=== PATIENT | female | born 1975 | race African-American/Black ===

== ENCOUNTER 2019-05-02 08:48 | Emergency (ER) | payer OTHER ==
[~2019-05-02] VITALS: Ht 157.5 cm; Wt 174.6 kg
[2019-05-02 09:25] LABS: ABSOLUTE NEUTROPHILS 5.7 thou/uL (1.4-8.2); BASOPHILS 1.2 % (0.0-2.0); EOSINOPHILS 2.3 % (0.0-3.0); HEMOGLOBIN 12.7 gm/dL (12.0-15.0); LYMPHOCYTES 21.4 % (24.0-44.0); MCH 27.5 pg (26.0-34.0); MCHC 33.4 g/dL (28.0-37.0); MCV 82.2 fL (80.0-100.0); MONOCYTES 6.7 % (1.0-8.0); PLATELET COUNT 379 thou/uL (150-400); POLYS 68.4 % (36.0-66.0); RBC 4.62 mil/uL (4.20-5.00); RDW 15.7 % (10.5-14.5); WBC 8.4 thou/uL (4.0-11.0)
[2019-05-02 09:29] LABS: ANION GAP 8 mmol/L (7-16); BUN 13 mg/dL (7-18); CALCIUM 8.8 mg/dL (8.5-10.1); CHLORIDE 104 mmol/L (98-107); CO2 28 mmol/L (21-32); CREATININE 0.7 mg/dL (0.6-1.0); GLUCOSE 83 mg/dL (74-106); POTASSIUM 3.9 mmol/L (3.5-5.1); SODIUM 140 mmol/L (136-145)
[2019-05-02] MEDS ORDERED: SIMVASTATIN80 MG PO (09:36)
[2019-05-02] MEDS ORDERED: COUMADIN7.5 MG PO (09:36)
[2019-05-02] MEDS ORDERED: KEPPRA XR500 MG PO (09:36)
[2019-05-02] MEDS ORDERED: NORVASC 2.5 MG2.5 M1 PO (09:37)
[2019-05-02] MEDS ORDERED: FLUOXETINE HCL10 M1 PO (09:38)
[2019-05-02 09:39] LABS: ALBUMIN 2.9 g/dL (3.4-5.0); LIPASE 112 U/L (73-393); SGOT 20 U/L (15-37); SGPT 24 U/L (30-65); TOTAL BILIRUBIN 0.6 mg/dL (<0.1-1.0); TOTAL PROTEIN 6.8 g/dL (6.4-8.2); TROPONIN-I <0.06 ng/mL (<0.06)
[2019-05-02 09:44] LABS: INR 2.1; PROTIME 21.4 Seconds (9.3-11.4)
[2019-05-02 11:54] LABS: URINE BILIRUBIN NEGATIVE (Negative); URINE BLOOD TRACE (Negative); URINE CLARITY CLEAR; URINE COLOR YELLOW; URINE GLUCOSE-RANDOM* NEGATIVE (Negative); URINE KETONES NEGATIVE (Negative); URINE LEUKOCYTES-REFLEX NEGATIVE (Negative); URINE NITRITE-REFLEX NEGATIVE (Negative); URINE PROTEIN (DIPSTICK) NEGATIVE (Negative); URINE UROBILINOGEN 0.2 E.U./dl (0.2-1.0)
[2019-05-02] MEDS ORDERED: NYAMYC15 GM TOP (13:49)
[2019-05-02 14:42] VITALS: BP 121/65
--- NOTE | 2019-05-04 09:05 | EKG ---
[place] [address] [facility] [place] [address] ELECTROCARDIOGRAM REPORT Name: FLAKITO MIRANDA [id number] Admission: 05/02/19 Attend Phys: Discharge: 05/02/19 Date of : 73 Report #: [id number] THIS REPORT FOR: //name// [facility] ED Test Date: 2019-05-02 Test Time: 10:18:36 Pat Name: FLAKITO MIRANDA Department: Room: Gender: F Frame Nailer: [facility] : 1975 Requested By: Ross Bunch Order Number: [id number] MD: Michael Friend Measurements Intervals [place] Rate: 66 P: 31 MI: 160 QRS: 4 QRSD: 105 T: 26 QT: 413 QTc: 433 Interpretive Statements Sinus rhythm No significant abnormality No previous ECG available for comparison Electronically Signed On 05-04-2019 9:05:03 CDT by Michael Friend [email or web address] <ELECTRONICALLY SIGNED> By: Michael Friend MD, [facility] 05/04/19 0905 1018 1018 Michael Friend MD, FACC /EPI
== END 2019-05-02 14:44 | disposition home or self-care (01) ==
LOC: ER 08:48
PROVIDERS: Emergency Medicine
DX: R20.2 Paresthesia of skin (principal); B37.9 Candidiasis, unspecified; R10.84 Generalized abdominal pain; Z88.8 Allergy status to other drugs, medicaments and biological substances

== ENCOUNTER 2019-06-12 07:46 | Emergency (ER) | payer OTHER ==
[~2019-06-12] VITALS: Ht 157.5 cm; Wt 163.3 kg
[~2019-06-12 07:46] MED LIST: COUMADIN7.5 MG PO; FLUOXETINE HCL10 M1 PO; KEPPRA XR500 MG PO; NORVASC 2.5 MG2.5 M1 PO; NYAMYC15 GM TOP; SIMVASTATIN80 MG PO
[2019-06-12 08:14] LABS: ABSOLUTE NEUTROPHILS 6.7 thou/uL (1.4-8.2); EOSINOPHILS 1.8 % (0.0-3.0); HEMATOCRIT 42.6 % (37.0-47.0); HEMOGLOBIN 13.7 gm/dL (12.0-15.0); LYMPHOCYTES 23.4 % (24.0-44.0); MCH 26.6 pg (26.0-34.0); MCHC 32.2 g/dL (28.0-37.0); MCV 82.5 fL (80.0-100.0); PLATELET COUNT 361 thou/uL (150-400); POLYS 66.8 % (36.0-66.0); RBC 5.16 mil/uL (4.20-5.00); RDW 14.5 % (10.5-14.5)
[2019-06-12 08:23] LABS: CALCIUM 9.8 mg/dL (8.5-10.1); CREATININE 0.8 mg/dL (0.6-1.0); POTASSIUM 3.5 mmol/L (3.5-5.1)
[2019-06-12 08:26] LABS: APTT 46.4 Seconds (24.5-32.8); INR 2.3; PROTIME 23.8 Seconds (9.3-11.4)
[2019-06-12 08:31] LABS: ALBUMIN 3.2 g/dL (3.4-5.0); DIRECT BILIRUBIN 0.1 mg/dL (<0.1-0.3); TOTAL BILIRUBIN 0.4 mg/dL (<0.1-1.0)
[2019-06-12] MEDS ORDERED: PRAVACHOL40 MG PO (09:02)
[2019-06-12] MEDS ORDERED: VALSARTAN-HCTZ1 EAC2 PO (09:14)
[2019-06-12] MEDS ORDERED: PROZAC 10 MG CA10 MG PO (09:15)
[2019-06-12] MEDS ORDERED: NORCO 5-325 TA1 EAC1 PO (09:27)
[2019-06-12 09:28] VITALS: BP 125/86
--- NOTE | 2019-06-12 13:08 | EKG ---
[place] [address] [place] [address] ELECTROCARDIOGRAM REPORT Name: FLAKITO MIRANDA Room #: [facility] Shon#: [id number] Admission: 06/12/19 Attend Phys: Discharge: 06/12/19 Date of : 73 Report #: [id number] THIS REPORT FOR: //name// [facility] ED Test Date: 2019-06-12 Test Time: 07:51:03 Pat Name: FLAKITO MIRANDA Department: Room: Gender: F Corporate Vp Advertising & Online: MADI : 1975 Requested By: Marva Thakur Order Number: [id number] MD: Michael Friend Measurements Intervals [place] Rate: 86 P: 71 NH: 158 QRS: 10 QRSD: 100 T: 11 QT: 363 QTc: 434 Interpretive Statements Sinus rhythm Poor R wave progression Compared to ECG 05/02/2019 10:18:36 No significant changes Electronically Signed On 06-12-2019 13:08:24 POWER PRESS SUPERVISOR by Michael Friend [email or web address] <ELECTRONICALLY SIGNED> By: Michael Friend MD, [facility] 06/12/19 1308 0751 0751 Michael Friend MD, FACC /EPI
== END 2019-06-12 09:28 | disposition home or self-care (01) ==
LOC: ER 07:46
PROVIDERS: Emergency Medicine
DX: M79.10 Myalgia, unspecified site (principal); R42 Dizziness and giddiness; I10 Essential (primary) hypertension; J45.909 Unspecified asthma, uncomplicated; Z86.718 Personal history of other venous thrombosis and embolism; Z88.8 Allergy status to other drugs, medicaments and biological substances; W18.39XA Other fall on same level, initial encounter; Y93.89 Activity, other specified; Y92.89 Other specified places as the place of occurrence of the external cause; Y99.8 Other external cause status

== ENCOUNTER 2019-08-08 05:52 | Emergency (ER) | payer OTHER ==
[~2019-08-08] VITALS: Ht 157.5 cm; Wt 176.9 kg
[~2019-08-08 05:52] MED LIST changes: +NORCO 5-325 TA1 EAC1 PO; +PRAVACHOL40 MG PO; +PROZAC 10 MG CA10 MG PO; +VALSARTAN-HCTZ1 EAC2 PO
[2019-08-08] MEDS ORDERED: PROAIR HFA8.5 GM INH (06:00)
[2019-08-08] MEDS ORDERED: SYMBICORT80 MCG/4.1 INH (06:01)
[2019-08-08] MEDS ORDERED: AZITHROMYCIN500 MG PO (06:01)
[2019-08-08] MEDS ORDERED: TESSALON PERLE100 M1 PO (06:02)
[2019-08-08] MEDS ORDERED: KEPPRA XR750 MG PO (06:03)
[2019-08-08 06:29] LABS: ABSOLUTE NEUTROPHILS 6.9 thou/uL (1.4-8.2); BASOPHILS 1.2 % (0.0-2.0); EOSINOPHILS 1.3 % (0.0-3.0); HEMATOCRIT 38.6 % (37.0-47.0); HEMOGLOBIN 12.4 gm/dL (12.0-15.0); LYMPHOCYTES 18.2 % (24.0-44.0); MCH 26.2 pg (26.0-34.0); MCHC 32.3 g/dL (28.0-37.0); MCV 81.2 fL (80.0-100.0); MONOCYTES 6.4 % (1.0-8.0); PLATELET COUNT 376 thou/uL (150-400); POLYS 72.9 % (36.0-66.0); RBC 4.75 mil/uL (4.20-5.00); RDW 14.4 % (10.5-14.5); WBC 9.5 thou/uL (4.0-11.0)
[2019-08-08 06:33] LABS: ANION GAP 6 mmol/L (7-16); BUN 10 mg/dL (7-18); CALCIUM 8.9 mg/dL (8.5-10.1); CHLORIDE 102 mmol/L (98-107); CO2 32 mmol/L (21-32); CREATININE 0.7 mg/dL (0.6-1.0); GLUCOSE 90 mg/dL (74-106); POTASSIUM 3.3 mmol/L (3.5-5.1); SODIUM 140 mmol/L (136-145)
[2019-08-08 06:42] LABS: APTT 42.9 Seconds (24.5-32.8); INR 2.2; PROTIME 22.1 Seconds (9.3-11.4)
[2019-08-08 06:44] LABS: ALBUMIN 3.1 g/dL (3.4-5.0); SGOT 17 U/L (15-37); SGPT 20 U/L (30-65); TOTAL BILIRUBIN 0.7 mg/dL (<0.1-1.0); TOTAL PROTEIN 7.7 g/dL (6.4-8.2); TROPONIN-I <0.06 ng/mL (<0.06)
[2019-08-08 07:09] VITALS: BP 120/85
--- NOTE | 2019-08-08 10:53 | EKG ---
[place] [address] [place] [address] ELECTROCARDIOGRAM REPORT Name: FLAKITO MIRANDA [facility] [id number] Admission: 08/08/19 Attend Phys: Discharge: 08/08/19 Date of : 73 Report #: [id number] THIS REPORT FOR: //name// [facility] ED Test Date: 2019-08-08 Test Time: 06:30:02 Pat Name: FLAKITO MIRANDA Department: Room: Gender: F Chemist Water Purification: MPA : 1975 Requested By: Alex Andrews Order Number: [id number] MD: Chepe Rajan Measurements Intervals [place] Rate: 70 P: 35 MI: 158 QRS: 12 QRSD: 106 T: 28 QT: 404 QTc: 436 Interpretive Statements Sinus rhythm Poor R-wave progression Compared to ECG 06/12/2019 07:51:03 No significant change Electronically Signed On 08-08-2019 10:53:06 RETAIL REPRESENTATIVE by Chepe Rajan [email or web address] <ELECTRONICALLY SIGNED> By: Chepe Rajan MD 08/08/19 1053 0630 0630 Chepe Rajan MD /JAKE
== END 2019-08-08 07:22 | disposition home or self-care (01) ==
LOC: ER 05:52
PROVIDERS: Emergency Medicine
DX: E87.6 Hypokalemia (principal); R50.9 Fever, unspecified; R52 Pain, unspecified; I10 Essential (primary) hypertension; J45.909 Unspecified asthma, uncomplicated; Z86.718 Personal history of other venous thrombosis and embolism; Z88.8 Allergy status to other drugs, medicaments and biological substances

== ENCOUNTER 2019-12-15 20:31 | Emergency (ER) | payer OTHER ==
[~2019-12-15] VITALS: Ht 157.5 cm; Wt 174.6 kg
[~2019-12-15 20:31] MED LIST changes: +AZITHROMYCIN500 MG PO; +KEPPRA XR750 MG PO; +PROAIR HFA8.5 GM INH; +SYMBICORT80 MCG/4.1 INH; +TESSALON PERLE100 M1 PO
[2019-12-15 21:04] LABS: HEMOGLOBIN 12.4 gm/dL (12.0-15.0); MCHC 32.7 g/dL (28.0-37.0)
[2019-12-15 21:05] LABS: ABSOLUTE NEUTROPHILS 7.6 thou/uL (1.4-8.2); BASOPHILS 1.2 % (0.0-2.0); EOSINOPHILS 1.6 % (0.0-3.0); LYMPHOCYTES 19.9 % (24.0-44.0); MCH 26.5 pg (26.0-34.0); MCV 80.8 fL (80.0-100.0); MONOCYTES 6.1 % (1.0-8.0); PLATELET COUNT 350 thou/uL (150-400); POLYS 71.2 % (36.0-66.0); RDW 15.8 % (10.5-14.5); WBC 10.7 thou/uL (4.0-11.0)
[2019-12-15 21:17] LABS: INR 1.9; PROTIME 19.4 Seconds (9.3-11.4)
[2019-12-15 21:20] LABS: ANION GAP 5 mmol/L (7-16); BUN 8 mg/dL (7-18); CALCIUM 8.3 mg/dL (8.5-10.1); CHLORIDE 102 mmol/L (98-107); CO2 32 mmol/L (21-32); CREATININE 0.9 mg/dL (0.6-1.0); GLUCOSE 89 mg/dL (74-106); POTASSIUM 3.4 mmol/L (3.5-5.1); SODIUM 139 mmol/L (136-145)
[2019-12-15 21:25] LABS: ALBUMIN 2.9 g/dL (3.4-5.0); SGOT 16 U/L (15-37); SGPT 13 U/L (30-65); TOTAL BILIRUBIN 0.2 mg/dL (0.2-1.0); TOTAL PROTEIN 7.6 g/dL (6.4-8.2); TROPONIN-I <0.06 ng/mL (<0.06)
[2019-12-15 22:43] LABS: URINE BILIRUBIN NEGATIVE (Negative); URINE BLOOD TRACE (Negative); URINE CLARITY CLEAR; URINE COLOR YELLOW; URINE GLUCOSE-RANDOM* NEGATIVE (Negative); URINE KETONES NEGATIVE (Negative); URINE LEUKOCYTES-REFLEX NEGATIVE (Negative); URINE NITRITE-REFLEX NEGATIVE (Negative); URINE PROTEIN (DIPSTICK) NEGATIVE (Negative); URINE UROBILINOGEN 0.2 E.U./dl (0.2-1.0)
[2019-12-15 23:23] VITALS: BP 131/69
--- NOTE | 2019-12-16 08:29 | EKG ---
[facility] [place] [address] ELECTROCARDIOGRAM REPORT Name: FLAKITO MIRANDA Room #: [facility]#: [id number] Admission: 12/15/19 Attend Phys: Discharge: 12/15/19 Date of : 73 Report #: [id number] THIS REPORT FOR: cc: FAM - Family physician unknown FAM - Family physician unknown Michael Friend MD [facility] THIS REPORT FOR: //name// [facility] ED Test Date: 2019-12-15 Test Time: 21:00:01 Pat Name: FLAKITO MIRANDA Department: Room: Gender: F Research Greenhouse Supervisor: MEENA : 1975 Requested By: Monica Carballo Order Number: [id number] MD: Michael Friend Measurements Intervals [place] Rate: 76 P: 71 NV: 153 QRS: 16 QRSD: 103 T: 34 QT: 395 QTc: 445 Interpretive Statements Sinus rhythm Poor R wave progression Compared to ECG 08/08/2019 06:30:02 No significant change was found Electronically Signed On 12-16-2019 8:26:58 CDT by Michael Friend [email or web address] <ELECTRONICALLY SIGNED> By: Michael Friend MD, FAC 12/16/19 0826 99 99 Michael Friend MD, [facility] /EPI
== END 2019-12-15 23:42 | disposition home or self-care (01) ==
LOC: ER 20:31
PROVIDERS: Student in an Organized Health Care Education/Training Program
DX: E87.6 Hypokalemia (principal); R20.0 Anesthesia of skin; R07.9 Chest pain, unspecified; R42 Dizziness and giddiness; I10 Essential (primary) hypertension; J45.909 Unspecified asthma, uncomplicated; Z79.899 Other long term (current) drug therapy; Z79.01 Long term (current) use of anticoagulants; Z88.8 Allergy status to other drugs, medicaments and biological substances; Z86.718 Personal history of other venous thrombosis and embolism

== ENCOUNTER 2020-02-05 11:30 | Inpatient (IN) | payer OTHER ==
[~2020-02-05] VITALS: Ht 157.5 cm; Wt 201.4 kg
--- NOTE | ~2020-02-05 | EMS ---
[facility] [address] [place] [address] EMS Patient Care Report Name: FLAKITO MIRANDA Room #: REG Shon#: [id number] Admission: 02/05/20 Attend Phys: Discharge: Date of : 73 Report #: [id number] THIS REPORT FOR: //name// Report Transmitted: 02/05/2020 13:18 EMS Care Summary [place], [place]/[facility] Incident [id number] @ 02/05/2020 10:37 Incident Location [address] [place] [address] Patient FLAKITO MIRANDA Female, 44 Years 1975 Patient Address [address] [address] Patient History Asthma,Hypertension (HTN),Seizures,Hyperlipidemia,Morbid Obesity,Deep Vein Thrombosis, Patient Allergies Prednisone, Patient Medications Symbicort, Levetiracetam, Keppra, Fluoxetine, Other, Warfarin, Valsartan, Amlodipine, Proair, Pravastatin, Chief Complaint HEADACHE Disposition Transported No Lights/[place] Dispatch Reason Assist Invalid Transported To [facility] Narrative DISPATCHED NON EMERGENCY ON A F[facility] AT [facility]. TRUCK [address] ON [facility] [address] [place] [address] EMS Patient Care Report Name: FLAKITO MIRANDA Room #: REG MARÍA Menendez#: [id number] Admission: 02/05/20 Attend Phys: Discharge: Date of : 73 Report #: [id number] SCENE UPON ARRIVAL. 44 Y/O FEMALE SITTING IN WHEELCHAIR IN FRONT ENTRANCE APPEARING IN NO IMMEDIATE DISTRESS. GCS 15 AND ALERT. CONSENTS FOR TX AND TRANSPORTATION. PT STATES SHE HAS A HISTORY OF SEIZURES AND HAD A FALL EARLIER THIS MORNING AT HOME AND HER NEIGHBOR FOUND HER. CHIEF COMPLAINT IS DIZZINESS AND A HEADACHE. DENIES ANY CURRENT INJURIES. PAIN TO RIGHT LOWER LEG FROM PREVIOUS FALL EARLIER THIS MORNING. STATES HER NEIGHBOR BROUGHT HER TO THE CLINIC. MOVED WITHOUT INCIDENT TO AMBULANCE VIA STRETCHER. PLACED ON MONITOR AND V/S'S OBTAINED. PT ALSO STATES SHE HAS HAD DIARRHEA X2 WEEKS. PT STATES SHE CAN'T FEEL HER FEET BUT WHEN EYES ARE CLOSED IS ABLE TO IDENTIFY THAT EMS IS TOUCHING HER LEFT LEG. PT IS ABLE TO MOVE BILATERAL FEET AND STATES SHE IS HAVING PAIN AT 9 TO RIGHT LOWER LEG. HEADACHE WTH PAIN AT 9. PT IS UNABLE TO DESCRIBE PAIN. "IT JUST HURTS". NO OBVIOUS DEFORMITIES TO EXTREMITIES. TRANSPORTED TO [facility] PER PT REQUEST. REASSESSED ENROUTE. REMAINS GCS 15 AND ALERT. PAIN REMAINS UNCHANGED AT 9. V/S'S CONTINOUSLY MONITORED ENROUTE. REPORT CALLED TO HOSPITAL. MOVED WITHOUT INCIDENT TO ER HOSPTIAL WHEEL CHAIR. PT CARE TRANSFERRED TO ED RN. Initial Vitals @10:53P: 72,R: 16,Pain: 9/10,GCS: 15,Glucose: 97,SpO2: 95,AR Suspected: false @10:58P: 70,R: 18,BP: 124/72,Pain: 9/10,GCS: 15,SpO2: 96,Revised Trauma: 12, @11:11P: 80,R: 16,BP: 120/70,Pain: 9/10,GCS: 15,SpO2: 98,Revised Trauma: 12, Assessments @10:49MENTAL:Person Oriented,Time Oriented,Place Oriented,Event Oriented,SKIN:HEENT:Eyes: Left Pupil: 4-mm,Eyes: Right Pupil: 4-mm,Neck/Airway: No Abnormalities,LUNG SOUNDS:General: Diarrhea,ABDOMEN:General: Diarrhea,PELVIS//GI:EXTREMITIES:Capillary Refill: Right Upper: < 2 Sec,Capillary Refill: Left Upper: < 2 Sec,Left Leg: Other,Right Leg: Other,Capillary Refill: Right Lower: < 2 Sec,Capillary Refill: Left Lower: < 2 Sec,Left Arm: No Abnormalities,Right Arm: No Abnormalities,PULSE:Radial: 2+ Normal,NEURO:No Abnormalities, Impression Dizziness Procedures @10:533-Lead ECGResponse: UnchangedSucceeded@10:49ALS AssessmentResponse: UnchangedSucceeded@10:50StretcherResponse: Unchanged Timeline 10:04,Call Received 10:04,Dispatch Notified 10:37,Dispatched 10:37,En Route 10:48,On Scene 10:48,At Patient [address] [address] EMS Patient Care Report Name: FLAKITO MIRANDA Savage Room #: [facility]#: [id number] Admission: 02/05/20 Attend Phys: Discharge: Date of : 73 Report #: [id number] 10:49,ALS Assessment,Response: UnchangedSucceeded, 10:50,Stretcher,Response: Unchanged 10:53,3-Lead ECG,Response: UnchangedSucceeded, 10:53,BP: / M,PULSE: 72,RR: 16 R,SPO2: 95 Ox,ETCO2: ,B,PAIN: 9,GCS: 15, 10:58,BP: 124/72 M,PULSE: 70,RR: 18 R,SPO2: 96 Ox,ETCO2: ,BG: ,PAIN: 9,GCS: 15, 10:58,Depart Scene 11:11,BP: 120/70 M,PULSE: 80,RR: 16 R,SPO2: 98 Ox,ETCO2: ,BG: ,PAIN: 9,GCS: 15, 11:26,At Destination 11:43,Call Closed Disclaimer v1.1 Copyright 2020 [employer] This EMS Care Summary contains data elements from the applicable legal record (which may be displayed differently). It is designed to provide pertinent information for the following purposes: continuity of care, clinical quality, and state data reporting. The complete legal record is available to ED staff and administrators of the receiving hospital in [employer] Patient Tracker. All data is provided "as is."
[2020-02-05 11:42] VITALS: BP 113/74
[2020-02-05 15:14] LABS: ABSOLUTE NEUTROPHILS 7.4 thou/uL (1.4-8.2); BASOPHILS 1.2 % (0.0-2.0); EOSINOPHILS 1.2 % (0.0-3.0); HEMATOCRIT 40.3 % (37.0-47.0); HEMOGLOBIN 12.9 gm/dL (12.0-15.0); MCH 25.9 pg (26.0-34.0); MCV 80.7 fL (80.0-100.0); MONOCYTES 6.3 % (1.0-8.0); PLATELET COUNT 428 thou/uL (150-400); POLYS 70.3 % (36.0-66.0); RBC 4.99 mil/uL (4.20-5.00); WBC 10.5 thou/uL (4.0-11.0)
[2020-02-05 15:28] LABS: INR 4.1
[2020-02-05 15:44] LABS: ANION GAP 11 mmol/L (7-16); CHLORIDE 101 mmol/L (98-107); CO2 26 mmol/L (21-32); GLUCOSE 80 mg/dL (74-106); POTASSIUM 4.6 mmol/L (3.5-5.1); SGOT 26 U/L (15-37); SGPT 21 U/L (30-65); SODIUM 138 mmol/L (136-145)
[2020-02-05 15:59] LABS: BUN 12 mg/dL (7-18); CALCIUM 8.8 mg/dL (8.5-10.1); CREATININE 0.7 mg/dL (0.6-1.0); TOTAL BILIRUBIN 0.5 mg/dL (0.2-1.0); TOTAL PROTEIN 8.3 g/dL (6.4-8.2); TROPONIN-I <0.06 ng/mL (<0.06)
[2020-02-05 16:34] LABS: URINE BILIRUBIN NEGATIVE (Negative); URINE BLOOD 3+ (Negative); URINE CLARITY CLEAR; URINE COLOR YELLOW; URINE GLUCOSE-RANDOM* NEGATIVE (Negative); URINE KETONES NEGATIVE (Negative); URINE NITRITE-REFLEX NEGATIVE (Negative); URINE PROTEIN (DIPSTICK) NEGATIVE (Negative); URINE UROBILINOGEN 0.2 E.U./dl (0.2-1.0)
[2020-02-05 16:39] LABS: URINE LEUKOCYTES-REFLEX 1+ (Negative)
[2020-02-05 16:48] LABS: BACTERIA-REFLEX 1-9 Few /HPF (None Seen); CASTS None Seen /LPF (None Seen); CRYSTALS None Seen /LPF (None Seen); SQUAMOUS 0-3 Few /LPF (0-3); URINE RBC 3-10 Few /HPF (0-2); URINE WBC-REFLEX 6-15 Few /HPF (0-5)
[2020-02-05 20:18] LABS: CHOLESTEROL 152 mg/dL (<200); HDL CHOLESTEROL 40 mg/dL (>40); LDL CHOLESTEROL 94 mg/dL (<100); TC:HDL 3.8 Ratio (Not establshd); TRIGLYCERIDE 94 mg/dL (<150); VLDL 19 mg/dL (<40)
[2020-02-05 20:54] VITALS: BP 123/50
--- NOTE | 2020-02-05 21:15 | NUR ---
CALLED @ 21:00 TO GIVE REPORT BUT WAS TOLD RN WILL CALL ME BACK ...STILL WAITING
--- NOTE | 2020-02-05 21:34 | NUR ---
CALLED AGAIN TO GIVE REPORT TO ANTHONY NIX,AGAIN SHE WAS WITH PT.
[2020-02-05 21:44] VITALS: BP 107/69
[2020-02-05 22:06] VITALS: BP 116/75
[2020-02-06] VITALS (7 sets, daily range): BP systolic 93–143; BP diastolic 50–100
--- NOTE | 2020-02-06 01:17 | NUR ---
ADMISSION ASSESSMENT COMPLETED. PT IS ALERT AND ORIENTED. SCHEDULED HS MEDS GIVEN. PT STARTED ON FLUIDS VIA RFA. PT GIVEN A SANDWICH BOX, SHE DENIES ANY NAUSEA OR VOMITING.SEIZURE PREC IN PLACE. AFEBRILE. PAIN IS TO THE RLE, ROBERT WITH MOVEMENT.SHE DID NOT GIVE ME A DESIGNATED VISITOR NAME YET.CALL LIGHT WITHIN REACH, FALL PREC IN PLACE.
[2020-02-06 07:50] LABS: INR 3.8; PROTIME 39.5 Seconds (9.3-11.4)
--- NOTE | 2020-02-06 12:11 | NUR ---
Assumed pt care at 7am.Assessment completed.vss.Pt c/o legs and headache. Tylenol po given with am meds.Pt said the pain still the same and wanted more pain med.Dr Thomas notified.Waiting for return call.Pt up in chair waiting for lunch.Will continue to monitor.
[2020-02-06 17:54] LABS: ABSOLUTE NEUTROPHILS 5.7 thou/uL (1.4-8.2); EOSINOPHILS 2.3 % (0.0-3.0); HEMATOCRIT 38.2 % (37.0-47.0); HEMOGLOBIN 12.6 gm/dL (12.0-15.0); LYMPHOCYTES 22.4 % (24.0-44.0); MCH 26.3 pg (26.0-34.0); MCV 79.9 fL (80.0-100.0); MONOCYTES 8.2 % (1.0-8.0); PLATELET COUNT 379 thou/uL (150-400); POLYS 66.1 % (36.0-66.0); RBC 4.78 mil/uL (4.20-5.00); RDW 15.7 % (10.5-14.5); WBC 8.6 thou/uL (4.0-11.0)
[2020-02-06 18:00] LABS: CALCIUM 8.9 mg/dL (8.5-10.1); CREATININE 0.8 mg/dL (0.6-1.0); POTASSIUM 3.7 mmol/L (3.5-5.1)
[2020-02-06 18:06] LABS: ALBUMIN 2.7 g/dL (3.4-5.0); MAGNESIUM 2.1 mg/dL (1.8-2.4); TOTAL BILIRUBIN 0.2 mg/dL (0.2-1.0); TOTAL PROTEIN 7.3 g/dL (6.4-8.2)
[2020-02-06 20:09] LABS: HEMATOCRIT 35.6 % (37.0-47.0); HEMOGLOBIN 11.8 gm/dL (12.0-15.0)
--- NOTE | 2020-02-07 03:38 | NUR ---
RECIEVED CARE OF THIS PATIENT AT 1900. PATIENT ALERT AND OIENTED X4. PATIENT O2 SAT AND HR DROPPING. PLACED ON BIPAP. PATIENT ALSO HAVING PERIODS OF APNEA. PATIENT UP TO BSC WITH SBA. NEEDS ELP WITH HER SCD'S. C/O PAIN. TYLENOL GIVEN. ORTHO BP DONE, LYING WAS 114/58, SITTING WAS 131/78, STANDING WAS 143/100. PATIENT HAD NO SYMPTOMS. IV PATENT IN RFA WITH FLUIDS INFUSING. SLEPT LITTLE THIS SHIFT.
[2020-02-07 06:34] LABS: INR 1.6
[2020-02-07 07:11] LABS: ABSOLUTE NEUTROPHILS 5.4 thou/uL (1.4-8.2); BASOPHILS 0.6 % (0.0-2.0); EOSINOPHILS 2.8 % (0.0-3.0); HEMOGLOBIN 12.2 gm/dL (12.0-15.0); LYMPHOCYTES 23.1 % (24.0-44.0); MCH 25.7 pg (26.0-34.0); MCV 80.2 fL (80.0-100.0); PLATELET COUNT 386 thou/uL (150-400); POLYS 66.5 % (36.0-66.0); RBC 4.74 mil/uL (4.20-5.00); RDW 16.1 % (10.5-14.5); WBC 8.1 thou/uL (4.0-11.0)
[2020-02-07 07:18] LABS: CALCIUM 8.5 mg/dL (8.5-10.1); CREATININE 0.8 mg/dL (0.6-1.0); MAGNESIUM 1.9 mg/dL (1.8-2.4); PHOSPHORUS 3.2 mg/dL (2.5-4.9); POTASSIUM 4.1 mmol/L (3.5-5.1)
[2020-02-07 08:41] VITALS: BP 129/84
[2020-02-07 10:00] VITALS: BP 129/84
[2020-02-07 12:00] VITALS: BP 129/84
--- NOTE | 2020-02-07 13:47 | NUR ---
ASSUMED PT CARE AT 0700. PT ALERT X ORIENTED X 4. ON ROOM AIR. PT USES BIPAP AT NIGHT. PAIN NOT CONTROLLED BY TYLENOL. PATIENT RATES A PAIN OF 9. DOCTOR NOTIFIED ABOUT PAIN. SCD'S ON . IV RT FA WITH NS RUNNING AT 75ML/HR. PT ON 1 PERSON ASST, USES BEDSIDE COMMODE. HAD A BED BATH TODAY. NEUROCHECK Q SHIFT. SEIZURE AND FALL PRECT IN PLACE. CALL LIGHT WITH IN REACH. PT WILL CALL APPROPRIATELY. WILL CONT TO MONITOR.
[2020-02-07 15:40] VITALS: BP 131/74
[2020-02-07 16:10] VITALS: BP 126/78
[2020-02-07 20:25] LABS: HEMOGLOBIN 11.8 gm/dL (12.0-15.0)
[2020-02-07 21:54] VITALS: BP 116/62
[2020-02-08] VITALS (7 sets, daily range): BP systolic 113–158; BP diastolic 71–105
[2020-02-08 06:02] LABS: HEMATOCRIT 36.8 % (37.0-47.0); HEMOGLOBIN 11.9 gm/dL (12.0-15.0)
[2020-02-08 06:12] LABS: INR 1.1; PROTIME 11.4 Seconds (9.3-11.4)
--- NOTE | 2020-02-08 07:36 | EKG ---
[facility] [place] [address] ELECTROCARDIOGRAM REPORT Name: FLAKITO MIRANDA Room #: 440-P ADM IN M.R.#: [id number] Admission: 02/05/20 Attend Phys: Kike Juarez MD Discharge: Date of : 73 Report #: [id number] THIS REPORT FOR: cc: FAM - Family physician unknown FAM - Family physician unknown Michael Friend MD [facility] THIS REPORT FOR: //name// [facility] ED Test Date: 2020-02-05 Test Time: 13:14:06 Pat Name: FLAKITO MIRANDA Department: Room: 440 P Gender: F Senior Mechanical Design Engineer: DEISI : 1975 Requested By: Sergey Dick Order Number: [id number] MD: Michael Friend Measurements Intervals [place] Rate: 67 P: 47 IA: 163 QRS: 14 QRSD: 103 T: 26 QT: 405 QTc: 428 Interpretive Statements Sinus rhythm Poor R wave progression Compared to ECG 12/15/2019 21:00:01 No significant change was found Electronically Signed On 02-08-2020 7:36:05 CDT by Michael Friend [email or web address] <ELECTRONICALLY SIGNED> By: Michael Friend MD, [facility] 02/08/20 0736 1314 1314 Michael Friend MD, [facility] /EPI
--- NOTE | 2020-02-08 07:53 | NUR ---
PT TRANSFERRING TO BEDSIDE COMMODE WITH STANDBY ASSIST AND IS TOLERATING FAIR. PERCOCET PROVIDING PAIN RELIEF. RESTING COMFORTABLY. NO NEEDS VOICED. CALL LIGHT WITHIN REACH. FREQUENT OBSERVATION.
--- NOTE | 2020-02-08 13:50 | NUR ---
cm visited with pt via phone call. intro to dcp and transition of care. pt is a & o x 3, pleasant and able to make her needs know. " live in apartment, on 2nd floor, 3 flights up to the apartment. about 26 steps with handrail. boyfriend bridget lucero and his son come and check on me. on good day i can cook, shower and get dressed, it might just take me long time. manage own medication. have not driving since had seizure about [address] primary [address] is at [facility] dr lopez"/lelia. per physical therapy pt will need bariatric rollator at [place]. checked with [facility] and they no longer carry ones for 500lbs. will check with other dme companies [employer]. will cont following as needed for dc needs, will need auth from [employer].
--- NOTE | 2020-02-08 14:46 | NUR ---
ASSUMED PT CARE AT 0700. PT ALERT X ORIENTED X 4. ON ROOM AIR. IV RT FA WITH NS AT 75ML/HR.HAD A BM TODAY MORNING. PT ON STAND BY ASST WITH A GAIT BELT AND A WALKER. HAD A SHOWER TODAY. RN TALKED TO PATIENT'S DAD TODAY REGARDING THE DOCTOR'S SUGGESTION ABOUT IVC FILTER. CALL LIGHT WITHIN REACH. FALL AND SEIZURE PRECT IN PLACE. WILL CONT TO MONITOR.
--- NOTE | 2020-02-08 14:56 | NUR ---
FAXED REFERRAL TO [facility] FOR A BARIATRIC 4WW SPOKE WITH ANDREW IN INTAKE HE RECEIVED REFERRAL AND WILL REVIEW. DP TO FOLLOW.
--- NOTE | 2020-02-09 00:01 | NUR ---
ASSUMED PT CARE AT 1900. PT IS A&OX4. C/O PAIN TO BACK, MANAGED WITH PO PAIN MEDS. FREQ UP TO BSC WITH X1 ASSIST, BECOMES SOB WITH ACTIVITY, STATES SHE HAS JUST SLIGHT DIZZINESS. FLUIDS INFUSING PER ORDER. RT CAME BY AND GOT PT SET UP ON BIPAP TONIGHT. PT IS CURRENTLY RESTING IN BED WITH EYES CLOSED.
[2020-02-09 04:30] VITALS: BP 128/79
[2020-02-09 06:01] LABS: PROTIME 10.5 Seconds (9.3-11.4)
[2020-02-09 06:04] LABS: ABSOLUTE NEUTROPHILS 6.4 thou/uL (1.4-8.2); BASOPHILS 1.3 % (0.0-2.0); HEMATOCRIT 40.4 % (37.0-47.0); HEMOGLOBIN 12.9 gm/dL (12.0-15.0); LYMPHOCYTES 20.9 % (24.0-44.0); MCH 26.1 pg (26.0-34.0); MCHC 31.9 g/dL (28.0-37.0); MCV 81.8 fL (80.0-100.0); MONOCYTES 5.5 % (1.0-8.0); PLATELET COUNT 361 thou/uL (150-400); POLYS 70.3 % (36.0-66.0); RBC 4.94 mil/uL (4.20-5.00); WBC 9.2 thou/uL (4.0-11.0)
[2020-02-09 06:31] LABS: ALBUMIN 2.8 g/dL (3.4-5.0); CALCIUM 8.4 mg/dL (8.5-10.1); CREATININE 0.8 mg/dL (0.6-1.0); MAGNESIUM 1.8 mg/dL (1.8-2.4); PHOSPHORUS 3.7 mg/dL (2.5-4.9); POTASSIUM 4.1 mmol/L (3.5-5.1); TOTAL BILIRUBIN 0.6 mg/dL (0.2-1.0); TOTAL PROTEIN 7.4 g/dL (6.4-8.2)
[2020-02-09 07:05] VITALS: BP 119/74
[2020-02-09 09:46] VITALS: BP 119/74
[2020-02-09 11:23] VITALS: BP 119/74
--- NOTE | 2020-02-09 11:24 | NUR ---
ON-GOING ASSESSMENT: CM REVIEWED CHART AND SPOKE WITH ATTENDING. PATIENT IS STABLE TO DISCHARGE HOME TODAY WITH HOME HEALTH. CM REACHED OUT TO PATIENT AND NOTIFIED HER SINCE SHE HAS MEDICAID THAT SHE CAN GET A HOME HEALTH NURSE BUT IS UNABLE TO GET HOME HEALTH THERAPIES AT DISCHARGE BECAUSE MEDICAID DOES NOT COVER IT. PT REPORTS SHE FEELS A HOME HEALTH NURSE WOULD BE HELPFUL. CM NOTIFIED ATTENDING THAT ONLY A HH RN CAN SEE PATIENT. PT REPORTS NO PREFERENCE OF HH COMPANY LONG THEY TAKE MEDICAID. CM REACHED OUT TO DIFFERENT HOME HEALTH COMPANYS AND [facility] CAN ACCEPT PATIENT FOR ADMISSION. CM NOTIFIED THEM OF PATIENTS PCP DR. MG ESPOSITO AT [facility] PER PREVIOUS NOTE. CM ALSO TOUCHED BASE WITH ANDREW AT [facility] FOR PATIENTS BARIATRIC ROLLATER WALKER. CM FAXED CLINICAL TO [facility] AND [facility] DELIVERED THE BARIATRIC WALKER TODAY. BARIATRIC WALKER IS IN PATIENTS ROOM. PT IS STABLE TO DISCHARGE HOME WITH [facility] AND BARIATRIC WALKER. CM NOTIFIED BEDSIDE RN.
--- NOTE | 2020-02-09 12:21 | NUR ---
ASSUMED CARE AT 0700. PT IS ALERT AND ORIENTED. C/O RIGHT KNEE PAIN. VSSA/RA. TOLERATING DIET. GI/ WNL. PIV SL. PT IS STEADY ON FEET, HOWEVER DOES REQUIRE WALKER. FALL PRECAUTIONS IN PLACE. EDUCATION PROVIDED, PT TO CALL IF NEEDS [facility]. CALL LIGHT IN REACH. PRN PAIN MEDS GIVEN PER ORDER. KNEE PAIN IMPROVED. WILL CONTINUE TO MONITOR
[2020-02-09] MEDS ORDERED: ELIQUIS2.5 MG PO (12:30)
--- NOTE | 2020-02-09 12:54 | NUR ---
Nutrition: Assessing due to BMI > 40 kg/m2. Here w/ UTI, fall w/ small scalp hematoma. EMR indicates pt w/ super morbid obesity, hx DVT, hx falls, chronic anticoagulation and RLE weakness x 10 yrs. Pt on a heart healthy. Visited during lunch. Pt's BMI = 81.2 kg/m2 per CBW 444#. EMR reviewed, noted surgeon already had detailed discussion on surgical weight loss procedures, with mention of uncertainty regarding pt's motivation/understanding. Plan for bariatric clinic OP referral. RD visited to discuss nutrition strategies to begin implementing in the meantime. Recommended eliminating unnecessary kcals such as changing to calorie-free beverages. Also discussed downsizing eating portions and encouraging early satiety by increasing fiber/vegetable each meal, filling at least 50% of plate w/ non starchy varieties. Pt loves vegetables and sometimes has to increase green vegetables if INR too low in past. RD discussed vitamin K/Coumadin goals and interaction, but per latest notes, Coumadin likely to be dc'ed with possible change. Note new discharge orders for today as well. Low nutrition risk.
--- NOTE | 2020-02-10 06:54 | HC ---
[facility] [place] [address] CONSULTATION Name: FLAKITO MIRANDA Room #: 440-P [facility] IN .R.#: [id number] Admission: 02/05/20 Attend Phys: Kike Juarez MD Discharge: 02/09/20 Date of : 73 Report #: [id number] THIS REPORT FOR: cc: FAM - Family physician unknown FAM - Family physician unknown Manish Garcia MD ~ CC: Kike Juarez MD FAM unknown Kathie Hines REASON FOR CONSULTATION: History of falling on anticoagulation. HISTORY OF PRESENT ILLNESS: The patient is a pleasant 44-year-old -[place] female who tells me she has a history of first clot in her right leg when in [place] at [facility] in 2014. It sounds like she was on Lovenox for several days, then began on pills and it sounds like Coumadin but they had to adjust it. It sounds like she had another clot in 2016 when she was subtherapeutic if by her report ____. She may have had one at [place], but she is not sure. It sounds like her last clot was at least 3 if not 4 years ago. Recently, the patient reports that she falls unexpectedly about once every 2 months and she is not sure if it was a seizure or syncope. She just knows that she feels lightheaded, then goes down, so to speak. It sounds like she usually goes all the way out. At this time, she was admitted with a large hematoma on her backside. It sounds like she has never had internal bleeding, of note. PAST MEDICAL HISTORY: Notable for the history of right-sided weakness of long-term duration, unclear etiology; also morbid obese with a weight of 400-440 pounds; asthma; seizure disorder; obstructive sleep apnea. SOCIAL HISTORY: Notable for no tobacco use, no alcohol use. She is on disability. No street drugs. FAMILY HISTORY: Father had diabetes, hypertension, stroke and an HI. He is disabled. Mother had asthma and rheumatoid arthritis. Two brothers alive and well. One son, age 21, with some very mild asthma. MEDICATIONS: At this time in the hospital currently include Lovenox 40 mg b.i.d. begun on February 07 in the afternoon, oxycodone p.r.n., losartan 100 mg daily, fluoxetine 10 mg daily, ipratropium/albuterol 3 mL respiratory therapy q.4., levetiracetam 750 b.i.d., atorvastatin calcium 40 mg at bedtime, diazepam 5 mg q.6 p.r.n., Tylenol p.r.n., Zofran p.r.n., meclizine 25 mg q.8 p.o. p.r.n. The patient had been on warfarin that has been held. She was also on ceftriaxone. [address] [place] [address] CONSULTATION Name: RUTHFLAKITO C Room #: 440-P [facility] IN ..#: [id number] Admission: 02/05/20 Attend Phys: Kike Juarez MD Discharge: 02/09/20 Date of : 73 Report #: [id number] LABORATORY DATA: Lab tests this admit include electrolytes that are normal, liver functions that are normal. Creatinine of 0.8. Total bilirubin 0.6. Albumin was 3 and is currently 2.8. Protime on admission was 42, is currently 10.5. INR on admission was 4.1, is currently 1. White count 9.2, hemoglobin 12.9, platelets are 361. Differential does not appear to be acute. Note that there are labs ordered and drawn for antithrombin 3, protein C activity, protein S activity, APC resistance, DRVVT, anticardiolipin IgM, anticardiolipin IgG. I have also placed orders to have drawn a lupus anticoagulant panel to include hexagonal phase, DRVVT and also beta-2 glycoprotein IgG and IgM antibodies. PHYSICAL EXAMINATION: GENERAL: The patient appears her stated age. She is seated in a chair. VITAL SIGNS: Height is 5 feet 2 inches, 175.5 cm. Weight is 444 pounds or 201.39 kilograms. MOOD: She is pleasant and alert, conversant. NEUROLOGIC: Speech and thought pattern appears to be normal. LUNGS: Appear to be clear, anterior and posterior. HEART: Appears regular rate. ABDOMEN: Morbidly obese. It would be impossible to detect organomegaly, is nontender. EXTREMITIES: Does have some mild edema, a little bit more on the right than on the left. SKIN: Appears to be intact. ASSESSMENT AND PLAN: 1. History of recurrent clots in 2014, 2015. The patient would appear to be high risk for future clot recurrence. Agree with hypercoag workup ____ negative, the patient should be on long-term anticoagulants if able to tolerate. On the other hand, if she did have a lupus anticoagulant, we might give a strong feeling for more full-dose anticoagulant. At this point, without that notch, I think a better choice is an IVC filter, which has been mentioned to be prophylactic dose either apixaban 2.5 b.i.d. or Xarelto 10 daily. Even though this cannot guarantee a clot prevention, also I think a little bit safer in terms of a bleeding risk. We will also check an ultrasound of the right leg as a baseline today. We will await hypercoag panel workup. 2. Syncopal spells, unclear etiology. Defer to others. 3. Seizure disorder. Continue Keppra. 4. Obstructive sleep apnea. Defer to others. 5. Obesity. The patient is considering weight loss surgery. 6. Asthma. Inhalers per others. [facility] [address] [place] [address] CONSULTATION Name: FLAKITO MIRANDA Room #: 440-P [facility] IN [facility]#: [id number] Admission: 02/05/20 Attend Phys: Kike Juarez MD Discharge: 02/09/20 Date of : 73 Report #: [id number] 7. Right-sided weakness, chronic in nature. May consider PT, OT. We will be available if other questions arise. <ELECTRONICALLY SIGNED> By: Manish Garcia MD 02/10/20 0654 0832 0908 Manish Garcia MD /nt
== END 2020-02-09 15:00 | disposition home health service (06) | DRG 74 ==
LOC: ER 11:30 → 4S 19:03 → EROBS 19:03 → 4S 21:44
PROVIDERS: Internal Medicine; Nurse Practitioner Family; Physician Assistant; ADMIT Hospitalist; ATTEND Hospitalist
PROC: 5A09357 Assistance with Respiratory Ventilation, Less than 24 Consecutive Hours, Continuous Positive Airway Pressure (ICD-10-PCS; principal; 2020-02-07)
DX: G90.8 Other disorders of autonomic nervous system (principal); N39.0 Urinary tract infection, site not specified; Z68.45 Body mass index [BMI] 70 or greater, adult; S00.03XA Contusion of scalp, initial encounter; S30.0XXA Contusion of lower back and pelvis, initial encounter; G40.909 Epilepsy, unspecified, not intractable, without status epilepticus; E78.5 Hyperlipidemia, unspecified; I95.1 Orthostatic hypotension; E86.0 Dehydration; E66.01 Morbid (severe) obesity due to excess calories; I10 Essential (primary) hypertension; J45.909 Unspecified asthma, uncomplicated; G47.33 Obstructive sleep apnea (adult) (pediatric); Z71.3 Dietary counseling and surveillance; Z79.01 Long term (current) use of anticoagulants; Z86.718 Personal history of other venous thrombosis and embolism; Z88.8 Allergy status to other drugs, medicaments and biological substances; Z83.3 Family history of diabetes mellitus; Z82.61 Family history of arthritis; Z82.49 Family history of ischemic heart disease and other diseases of the circulatory system; Z82.5 Family history of asthma and other chronic lower respiratory diseases; W18.39XA Other fall on same level, initial encounter; Y93.89 Activity, other specified; Y92.89 Other specified places as the place of occurrence of the external cause; Y99.8 Other external cause status; Z79.899 Other long term (current) drug therapy
CPT/HCPCS: 10102

== ENCOUNTER 2020-08-11 05:41 | Emergency (ER) | payer OTHER ==
[~2020-08-11] VITALS: Ht 157.5 cm; Wt 172.4 kg
--- NOTE | ~2020-08-11 | EMS ---
[address] [address] EMS Patient Care Report Name: FLAKITO MIRANDA Room #: [facility]..#: [id number] Admission: Attend Phys: Discharge: Date of : 73 Report #: [id number] THIS REPORT FOR: //name// Report Transmitted: 08/11/2020 06:00 EMS Care Summary [place], [place]/[facility] Incident [id number] @ 08/11/2020 05:00 Incident Location [address] [place] [id number] Patient FLAKITO [place] Female, 45 Years 1975 Patient Address [address] [place] [address] Patient History Asthma,Hypertension (HTN),Seizures, Patient Allergies Prednisone, Patient Medications Valsartan, Chief Complaint ALL OVER ACHY PAIN/ GENERALIZED WEAKNESS Disposition Transported No Lights/[facility] Dispatch Reason Chest Pain (Non-Traumatic) Transported To [facility] Narrative DISPATCHED TO A CHEST PAIN. ARRIVED ON SCENE OF AN APARTMENT BUILDING WHERE PATIENT THREW HER KEYS OUT THE WINDOW TO EMS TO GET UP TO THE SECOND LEVEL. [address] [address] EMS Patient Care Report Name: FLAKITO MIRANDA Room #: [facility]#: [id number] Admission: Attend Phys: Discharge: Date of : 73 Report #: [id number] PATIENT WAS FOUND SITTING IN THE STAIRWAY. SHE SAID SHE IS HAVING ALL OVER ACHY PAIN AND WEAKNESS WITH DIFFICULTY BREATHING AND NUMBNESS IN BOTH LEGS FOR ONE WEEK. SHE SAID HER SYMPTOMS HAVE BEEN GETTING INCREASINGLY WORSE. PATIENT SAID SHE WAS ABLE TO WALK DOWN TO THE COT FOR FURTHER EVALUATION. SHE WAS ASSISTED DOWN THE STEPS AND OUT THE FRONT DOOR, SEATED ON THE COT, SECURED WITH STRAPS, AND MOVED TO THE AMBULANCE. PATIENT VITALS WERE OBTAINED AND SHE WAS TRANSPORTED TO THE HOSPITAL WITH VITALS MONITORED. UPON ARRIVAL AT THE HOSPITAL PATIENT WAS MOVED TO ED ROOM 10 ON THE COT AND ASSISTED IN MOVING OVER TO THE HOSPITAL BED. PATIENT CARE WAS TURNED OVER TO ED NURSING STAFF. Initial Vitals @05:24P: 87,R: 18,BP: 138/80,Pain: 6/10,GCS: 15,CO: 0,SpO2: 96,Revised Trauma: 12, @05:19P: 87,R: 18,BP: 148/89,Pain: 6/10,GCS: 15,CO: 0,SpO2: 99,Revised Trauma: 12, Assessments @05:15MENTAL:Person Oriented,Time Oriented,Event Oriented,Place Oriented,SKIN:HEENT:Head/Face: No Abnormalities,Neck/Airway: No Abnormalities,LUNG SOUNDS:General: No Abnormalities,ABDOMEN:General: No Abnormalities,PELVIS//GI:No Abnormalities,EXTREMITIES:Capillary Refill: Right Upper: < 2 Sec,Left Leg: Other,Right Arm: Other,Right Leg: Other,Left Arm: Other,PULSE:Radial: 2+ Normal,NEURO:Weakness Right-Sided,Weakness Left-Sided, Impression Generalized Weakness Procedures @05:15ALS AssessmentResponse: UnchangedSucceeded Timeline 04:58,Call Received 04:58,Dispatch Notified 05:00,Dispatched 05:02,En Route 05:08,On Scene 05:15,At Patient 05:15,ALS Assessment,Response: UnchangedSucceeded, 05:19,BP: 148/89 M,PULSE: 87,RR: 18 R,SPO2: 99 Ox,ETCO2: ,BG: ,PAIN: 6,GCS: 15, 05:22,Depart Scene 05:24,BP: 138/80 M,PULSE: 87,RR: 18 R,SPO2: 96 Ox,ETCO2: ,BG: ,PAIN: 6,GCS: 15, 05:34,At Destination 05:47,Call Closed Disclaimer v1.1 Copyright 2020 [employer] [address] [address] EMS Patient Care Report Name: FLAKITO MIRANDA Room #: [facility] M.R.#: [id number] Admission: Attend Phys: Discharge: Date of : 73 Report #: [id number] This EMS Care Summary contains data elements from the applicable legal record (which may be displayed differently). It is designed to provide pertinent information for the following purposes: continuity of care, clinical quality, and state data reporting. The complete legal record is available to ED staff and administrators of the receiving hospital in [place]. All data is provided "as is."
[~2020-08-11 05:41] MED LIST changes: +ELIQUIS2.5 MG PO
[2020-08-11] MEDS ORDERED: ELIQUIS2.5 MG PO (05:54)
[2020-08-11] MEDS ORDERED: OMEPRAZOLE 20 M20 M1 PO (05:55)
[2020-08-11 06:47] LABS: BASOPHILS 0.6 % (0.0-2.0); EOSINOPHILS 0.9 % (0.0-3.0); HEMOGLOBIN 11.8 gm/dL (12.0-15.0); MCH 25.9 pg (26.0-34.0); MCHC 32.7 g/dL (28.0-37.0); MCV 79.4 fL (80.0-100.0); MONOCYTES 5.2 % (1.0-8.0); PLATELET COUNT 432 thou/uL (150-400); POLYS 77.3 % (36.0-66.0); RBC 4.53 mil/uL (4.20-5.00); RDW 15.1 % (10.5-14.5); WBC 10.4 thou/uL (4.0-11.0)
[2020-08-11 06:58] LABS: APTT 26.4 Seconds (24.5-32.8); PROTIME 9.8 Seconds (9.3-11.4)
[2020-08-11 07:03] LABS: URINE BILIRUBIN NEGATIVE (Negative); URINE BLOOD 3+ (Negative); URINE CLARITY CLOUDY; URINE COLOR YELLOW; URINE GLUCOSE-RANDOM* NEGATIVE (Negative); URINE KETONES NEGATIVE (Negative); URINE NITRITE-REFLEX NEGATIVE (Negative); URINE PROTEIN (DIPSTICK) NEGATIVE (Negative); URINE SPECIFIC GRAVITY 1.015 (1.005-1.035); URINE UROBILINOGEN 0.2 E.U./dl (0.2-1.0)
[2020-08-11 07:04] LABS: URINE LEUKOCYTES-REFLEX 1+ (Negative)
--- NOTE | 2020-08-11 07:17 | EKG ---
[place] [address] [facility] [address] [place] [address] ELECTROCARDIOGRAM REPORT Name: FLAKITO MIRANDA Room #: [facility]#: [id number] Admission: Attend Phys: Discharge: Date of : 73 Report #: [id number] [facility] ED Test Date: 2020-08-11 Test Time: 06:00:06 Pat Name: FLAKITO MIRANDA Department: Room: Gender: Microwave Technician: NATHALIA : 1975 Requested By: Jaret Gordon Order Number: [id number] MD: Marlo Smith Measurements Intervals [place] Rate: 77 P: 69 [place]: 160 QRS: 16 QRSD: 97 T: 23 QT: 392 QTc: 444 Interpretive Statements Sinus rhythm Baseline wander in lead(s) V2 Compared to ECG 02/05/2020 13:14:06 Poor R-wave progression no longer present Electronically Signed On 08-11-2020 7:17:32 DIE CUTTER APPRENTICE by Marlo Smith [email or web address] <ELECTRONICALLY SIGNED> By: Marlo Smith MD, [facility] 08/11/20 0717 06 9 Marlo Smith MD, [facility] /EPI
[2020-08-11 07:21] LABS: ANION GAP 12 mmol/L (7-16); BUN 13 mg/dL (7-18); CALCIUM 9.7 mg/dL (8.5-10.1); CHLORIDE 102 mmol/L (98-107); CO2 28 mmol/L (21-32); CREATININE 0.7 mg/dL (0.6-1.0); GLUCOSE 99 mg/dL (74-106); SODIUM 142 mmol/L (136-145)
[2020-08-11 07:23] LABS: POTASSIUM 4.5 mmol/L (3.5-5.1)
[2020-08-11 07:31] LABS: LIPASE 91 U/L (73-393); SGOT 18 U/L (15-37); SGPT 15 U/L (14-59); TOTAL BILIRUBIN 0.3 mg/dL (0.2-1.0); TOTAL PROTEIN 7.5 g/dL (6.4-8.2); TROPONIN-I <0.06 ng/mL (<0.06)
[2020-08-11 08:41] LABS: SQUAMOUS 4-10 Moderate /LPF (0-3)
[2020-08-11 08:42] LABS: CASTS None Seen /LPF (None Seen); CRYSTALS None Seen /LPF (None Seen)
[2020-08-11 08:43] LABS: URINE RBC 3-10 Few /HPF (0-2)
[2020-08-11 08:44] LABS: BACTERIA-REFLEX >30 Many /HPF (None Seen); URINE WBC-REFLEX 6-15 Few /HPF (0-5)
[2020-08-11] MEDS ORDERED: KEFLEX500 M1 PO (10:39)
[2020-08-11 11:12] VITALS: BP 143/76
== END 2020-08-11 11:09 | disposition home or self-care (01) ==
LOC: ER 05:41
PROVIDERS: Emergency Medicine
DX: N39.0 Urinary tract infection, site not specified (principal); R06.02 Shortness of breath; R19.7 Diarrhea, unspecified; R53.1 Weakness; I10 Essential (primary) hypertension; J45.909 Unspecified asthma, uncomplicated; Z20.822 Contact with and (suspected) exposure to COVID-19; Z86.718 Personal history of other venous thrombosis and embolism; Z79.899 Other long term (current) drug therapy; Z88.8 Allergy status to other drugs, medicaments and biological substances

== ENCOUNTER 2021-03-05 08:39 | Emergency (ER) | payer OTHER ==
[~2021-03-05] VITALS: Ht 157.5 cm; Wt 172.4 kg
[~2021-03-05 08:39] MED LIST changes: +KEFLEX500 M1 PO; +OMEPRAZOLE 20 M20 M1 PO
[2021-03-05 10:28] LABS: ABSOLUTE NEUTROPHILS 7.9 thou/uL (1.4-8.2); BASOPHILS 1.1 % (0.0-2.0); EOSINOPHILS 2.1 % (0.0-3.0); HEMOGLOBIN 12.8 gm/dL (12.0-15.0); LYMPHOCYTES 12.7 % (24.0-44.0); MCH 26.3 pg (26.0-34.0); MCHC 32.8 g/dL (28.0-37.0); PLATELET COUNT 369 thou/uL (150-400); POLYS 80.1 % (36.0-66.0); RBC 4.88 mil/uL (4.20-5.00); RDW 16.5 % (10.5-14.5); WBC 9.9 thou/uL (4.0-11.0)
[2021-03-05 10:37] LABS: CALCIUM 8.7 mg/dL (8.5-10.1); CREATININE 0.8 mg/dL (0.6-1.0); POTASSIUM 4.5 mmol/L (3.5-5.1)
[2021-03-05 10:47] LABS: ALBUMIN 2.7 g/dL (3.4-5.0); TOTAL BILIRUBIN 0.5 mg/dL (0.2-1.0); TOTAL PROTEIN 7.9 g/dL (6.4-8.2)
[2021-03-05] MEDS ORDERED: FLEXERIL PO (11:07)
[2021-03-05] MEDS ORDERED: ZPAK PO (11:07)
[2021-03-05 11:57] VITALS: BP 127/65
--- NOTE | 2021-03-06 07:29 | EKG ---
[address] [address] ELECTROCARDIOGRAM REPORT Name: FLAKITO MIRANDA Room #: [facility]#: [id number] Admission: 03/05/21 Attend Phys: Discharge: 03/05/21 Date of : 73 Report #: [id number] [facility] ED Test Date: 2021-03-05 Test Time: 09:45:49 Pat Name: FLAKITO MIRANDA Department: Room: Gender: F Air Tucker: cody : 1975 Requested By: Arturo Romano Order Number: [id number] MD: Marlo Smith Measurements Intervals [place] Rate: 78 P: 69 [place]: 153 QRS: 9 QRSD: 100 T: 26 QT: 371 QTc: 423 Interpretive Statements Sinus rhythm Compared to ECG 08/11/2020 06:00:06 No significant changes Electronically Signed On 03-06-2021 7:29:28 CDT by Marlo Smith [email or web address] <ELECTRONICALLY SIGNED> By: Marlo Smith MD, [facility] 03/06/21 0729 0945 0945 Marlo Smith MD, FACC /EPI
== END 2021-03-05 11:57 | disposition home or self-care (01) ==
LOC: ER 08:39
PROVIDERS: Emergency Medicine
DX: S96.911A Strain of unspecified muscle and tendon at ankle and foot level, right foot, initial encounter (principal); M79.604 Pain in right leg; I10 Essential (primary) hypertension; J45.909 Unspecified asthma, uncomplicated; Z79.899 Other long term (current) drug therapy; Z79.51 Long term (current) use of inhaled steroids; Z88.8 Allergy status to other drugs, medicaments and biological substances; Z86.718 Personal history of other venous thrombosis and embolism